=== PATIENT | male | born 1970 | race Caucasian/White ===

== ENCOUNTER 2016-09-29 18:22 | Emergency (ER) | payer OTHER ==
[~2016-09-29] VITALS: Ht 172.7 cm; Wt 77.6 kg
[2016-09-29 19:35] LABS: BASOPHIL % 0.4 % (0-2); RED CELL DISTRIBUTION WIDTH 12.6 % (11.5-14.5)
[2016-09-29 19:37] LABS: PLATELET COUNT 116 x10^3mcL (130-400)
[2016-09-29 19:45] LABS: CALCIUM 10.4 mg/dL (8.5-10.1); CARBON DIOXIDE 30.9 mmol/L (21-32); CHLORIDE SERUM 88 mmol/L (98-107); CREATININE SERUM 0.9 mg/dL (0.7-1.3); GFR1 > 60 mL/min; GLUCOSE SERUM 104 mg/dL (74-106); SODIUM SERUM 133 mmol/L (136-145)
[2016-09-29 19:49] LABS: ALBUMIN 4.5 g/dL (3.4-5.0); ALKALINE PHOSPHATASE 70 U/L (46-116); ALT/SGPT 121 U/L (16-63); AMYLASE 70 U/L (25-115); AST/SGOT 186 U/L (15-37); BILIRUBIN TOTAL 2.5 mg/dL (0.20-1.00); LIPASE 240 IU/L (73-393); TOTAL PROTEIN, SERUM 9.3 g/dL (6.4-8.2)
[2016-09-29 20:00] LABS: CK-MB 2.9 ng/mL (0-3.6)
[2016-09-29 21:25] LABS: UA SPECIFIC GRAVITY >=1.030 (1.005-1.035); microscopic required? YES; urine erythrocyte TRACE (NEGATIVE)
[2016-09-29 23:16] VITALS: BP 123/84
== END 2016-09-29 23:21 | disposition home or self-care (01) ==
LOC: ED 18:22
PROVIDERS: Emergency Medicine
DX: R11.10 Vomiting, unspecified (principal); I10 Essential (primary) hypertension
CPT/HCPCS: G0480; J2405; J3411; J3475; J3490; J7030; Q0092

== ENCOUNTER 2016-12-09 14:12 | Emergency (ER) | payer OTHER ==
[~2016-12-09] VITALS: Ht 172.7 cm; Wt 77.7 kg
[2016-12-09 15:11] LABS: BASOPHIL % 0.5 % (0-2); RED CELL DISTRIBUTION WIDTH 12.9 % (11.5-14.5)
[2016-12-09 15:12] LABS: PLATELET COUNT 125 x10^3mcL (130-400)
[2016-12-09 15:17] LABS: CALCIUM 10.4 mg/dL (8.5-10.1); CARBON DIOXIDE 27.2 mmol/L (21-32); CHLORIDE SERUM 94 mmol/L (98-107); CREATININE SERUM 1.2 mg/dL (0.7-1.3); GFR1 > 60 mL/min; GLUCOSE SERUM 133 mg/dL (74-106); POTASSIUM SERUM 3.3 mmol/L (3.5-5.1); SODIUM SERUM 134 mmol/L (136-145)
[2016-12-09 15:33] LABS: ALBUMIN 4.2 g/dL (3.4-5.0); ALKALINE PHOSPHATASE 86 U/L (46-116); ALT/SGPT 99 U/L (16-63); AST/SGOT 259 U/L (15-37); BILIRUBIN TOTAL 6.6 mg/dL (0.20-1.00)
[2016-12-09 15:36] LABS: TOTAL PROTEIN, SERUM 9.2 g/dL (6.4-8.2)
[2016-12-09 17:01] VITALS: BP 154/90
== END 2016-12-09 17:01 | disposition home or self-care (01) ==
LOC: ED 14:12
DX: S01.512A Laceration without foreign body of oral cavity, initial encounter (principal); S70.01XA Contusion of right hip, initial encounter; I10 Essential (primary) hypertension; M10.9 Gout, unspecified; L40.9 Psoriasis, unspecified; H11.001 Unspecified pterygium of right eye; X58.XXXA Exposure to other specified factors, initial encounter; Y93.89 Activity, other specified; Y99.8 Other external cause status; Y92.89 Other specified places as the place of occurrence of the external cause
CPT/HCPCS: 36415